=== PATIENT | male | born 1975 | race Caucasian/White ===

== ENCOUNTER 2023-06-15 20:31 | Emergency (ER) | payer MEDICARE, SELFPAY ==
[2023-06-15 20:32] VITALS: BP 170/107; PULSE 98; RESP 18; TEMP 36.6; O2SAT 98
[2023-06-15 20:52] VITALS: BP 151/86
--- NOTE | 2023-06-15 20:58 | ED.GENADULT ---
HPI - General Adult General Chief complaint: Skin/Abscess/Foreign Body Stated complaint: Bug Bite on chest History of Present Illness HPI narrative: HEALTHY 48YO MAN PRESENTS WITH NEW ONSET RED PATCH, HOT, TO THE LEFT CHEST WALL. NO FEVERS OR CHILLS. THINKS A BUG BIT HIM THERE IS A PINPOINT WOUND. Related Data Allergies Allergy/AdvReac Type Severity Reaction Status Date / Time No Known Allergies Allergy Verified 06/15/23 20:33 Review of Systems Review of Systems: All systems reviewed & are unremarkable except as noted in HPI and below Constitutional: Constitutional: Denies chills and Denies fever(s) ENT: Denies dysphagia Cardiovascular: Cardiovascular: Denies chest pain Respiratory: Respiratory: Denies dyspnea Exam Const: General: healthy appearing and no acute distress Nutritional Appearance: well nourished Eyes: Conjunctivae: conjunctivae normal Resp: Effort & Inspection: normal respiratory effort and not labored Cardio: Rate: regular rate Skin: General skin exam: normal color, no jaundice and no pallor Other: THERE IS AN 8 CM DIAMETER RED RASH TO THE LEFT CHEST MEDIAL TO THE LEFT NIPPLE WITH A PINPOINT BITE AT THE CENTER. Extrem: General: normal to inspection and no clubbing, cyanosis or edema Course Vital Signs Vital signs: Vital Signs Temperature 36.6 C 06/15/23 20:32 Pulse Rate 98 06/15/23 20:32 Respiratory Rate 06/15/23 20:32 Blood Pressure 170/107 H 06/15/23 20:32 Pulse Oximetry 98 06/15/23 20:32 Oxygen Delivery Room Air 06/15/23 20:32 Temperature 36.6 C 06/15/23 20:32 Pulse Rate 98 06/15/23 20:32 Respiratory Rate 06/15/23 20:32 Blood Pressure 151/86 H 06/15/23 20:52 Pulse Oximetry 98 06/15/23 20:32 Oxygen Delivery Room Air 06/15/23 20:32 Medical Decision Making [facility] Narrative Medical decision making narrative: RASH DDX CELLULITIS, BROWN RECLUSE ENVENOMATION, MASTITIS Vital Signs Vital Signs: Vital Signs Temperature 36.6 C 06/15/23 20:32 Pulse Rate 98 06/15/23 20:32 Respiratory Rate 06/15/23 20:32 Blood Pressure 170/107 H 06/15/23 20:32 Pulse Oximetry 98 06/15/23 20:32 Oxygen Delivery Room Air 06/15/23 20:32 Temperature 36.6 C 06/15/23 20:32 Pulse Rate 98 06/15/23 20:32 Respiratory Rate 18 06/15/23 20:32 Blood Pressure 151/86 H 06/15/23 20:52 Pulse Oximetry 98 06/15/23 20:32 Oxygen Delivery Room Air 06/15/23 20:32 Discharge Plan Discharge Clinical Impression: Cellulitis Qualifiers: Site of cellulitis: trunk Site of cellulitis of trunk: chest wall Qualified Code(s): L03.313 - Cellulitis of chest wall Patient Disposition: Home, Self-Care Condition: Stable Instructions: Antibiotic Form Additional Instructions: The rash on your chest is consistent with a bacterial infection, which is called cellulitis. Less likely is a local reaction to venom from a spider bite. Start the prescribed antibiotics right away and complete the full course to clear the infection. Prescriptions: New sulfamethoxazole-trimethoprim [Bactrim DS] 800-160 mg tablet 2 tablet PO BID 5 Days Qty: 20 0RF Follow-up/Referrals: Cameron Cabrera M.D. [Primary Care Provider] - Time of Disposition: 21:02
[2023-06-15] MEDS: SULFAMETHOXAZOLE/TRIMETHOPRIM 800/160 MG DS TABLET 2 TAB PO (21:01)
[2023-06-15 21:12] VITALS: BP 141/91; PULSE 91; RESP 16; TEMP 36.6; O2SAT 98
== END 2023-06-15 21:13 | disposition home or self-care (01) ==
LOC: CHSED 21:10
PROVIDERS: Emergency Provider Emergency Medicine; PCP Family Medicine
DX: L03.113 Cellulitis of right upper limb (principal); Z23 Encounter for immunization
CPT/HCPCS: 90471; 99283; A9270